=== PATIENT | male | born 1985 | race Two or more races ===

== ENCOUNTER 2019-07-26 16:45 | Emergency (ER) | payer BC ==
[~2019-07-26] VITALS: Ht 170.2 cm; Wt 93.0 kg
--- NOTE | 2019-07-26 16:54 | NUR ---
BIB FOR SHARP CHEST PAIN RADIATING TO R ARM AND BACK. TO ER BED 9, HOOKED TO MONITOR, PROVIDED W WARM BLANKET, AWAITING MD SOTO.
--- NOTE | 2019-07-26 17:03 | NUR ---
DR HOOKS AT BEDSIDE
--- NOTE | 2019-07-26 17:22 | NUR ---
PATIENT REFUSED BLOOD DRAW, MADE DR HOOKS AWARE
[2019-07-26 18:06] VITALS: BP 132/87
--- NOTE | 2019-07-26 18:52 | NUR ---
Patient does not wish to proceed with medical care recommended by Dr. HOOKS. Patient given information related to possible complications, up to and including , which could occur as a result of leaving the hospital at this time. Patient verbalizes understanding of risks involved due to leaving against medical advice. Patient has signed AMA form.
== END 2019-07-26 18:54 | disposition left against medical advice (07) ==
LOC: ER 16:45
DX: R07.89 Other chest pain (principal)
CPT/HCPCS: 71045-TC